=== PATIENT | male | born 1985 | race Caucasian/White ===

== ENCOUNTER → 2023-03-14 11:25 | Outpatient (CLI) | payer OTHER, SELFPAY ==
--- NOTE | 2023-03-14 11:30 | DI.RAD.S_ITS ---
PROCEDURE: XR CHEST 2V INDICATIONS: travel to [place] TECHNIQUE: 2 views of the chest were acquired. COMPARISON: None. FINDINGS: Surgical changes and devices: None. Lungs and pleura: Lungs are clear. No pleural effusions or pneumothorax. Mediastinum: Mediastinal contours are normal. Heart size is normal. Bones and chest wall: No suspicious bony abnormalities. Soft tissues appear unremarkable. IMPRESSION: No acute cardiopulmonary abnormalities or focal airspace disease. Dictated by: Willian Liu M.D. on 03/14/2023 at 12:20 Approved by: Willian Liu M.D. on 03/14/2023 at 12:20
[2023-03-14 16:43] LABS: HIV 1 & 2 Ab/Ag 4th Gen Combo NEGATIVE (NEGATIVE)
[2023-03-15 07:17] LABS: RPR Screen Non Reactive (Non Reactive)
== END ==
PROVIDERS: Referring Provider Student in an Organized Health Care Education/Training Program; Visit Provider Student in an Organized Health Care Education/Training Program
DX: Z02.1 Encounter for pre-employment examination (principal); Z71.84 Encounter for health counseling related to travel
CPT/HCPCS: 36415; 71046; 86592; 86900; 86901; 87389